=== PATIENT | female | born 1965 | race Caucasian/White ===

== ENCOUNTER → 2016-07-05 | Outpatient (CLI) | payer BC ==
[~2016-07-05] MED LIST: ATV5X PO; CZR25 PO; METF500T5 PO; SIMV-151 PO
[2016-07-05 13:22] LABS: BLOOD UREA NITROGEN 14 mg/dl (7-18); BUN/CREATININE RATIO 16.5 (10-20); CALCIUM 9.4 mg/dl (8.5-10.1); CARBON DIOXIDE 29 mmol/L (21-32); CHLORIDE 104 mmol/L (98-107); CREATININE 0.85 mg/dl (0.60-1.20); GLUCOSE 101 mg/dl (70-99); POTASSIUM 4.2 mmol/L (3.5-5.1); SODIUM 140 mmol/L (136-145)
[2016-07-05 13:25] LABS: CHOLESTEROL 155 mg/dl (0-200); CHOLESTEROL/HDL RATIO 2.3; HDL CHOLESTEROL 66 mg/dl; LDL CHOLESTEROL CALCULATED 67 mg/dl; TRIGLYCERIDES 108 mg/dl (0-150); VERY LOW DENSITY LIPOPROT CALC 22 mg/dl
[2016-07-05 13:29] LABS: ESTIMATED AVERAGE GLUCOSE 131 mg/dl; HA1C FLAG Normal (Normal)
== END | disposition home or self-care (01) ==
LOC: C.LABPVFM 07:58
PROVIDERS: ATTEND Nurse Practitioner
DX: E11.9 Type 2 diabetes mellitus without complications (principal); I10 Essential (primary) hypertension

== ENCOUNTER → 2016-09-23 | Outpatient (CLI) | payer BC ==
--- NOTE | 2016-09-24 12:40 | MAMMOGRAPHY REPORT ---
BILATERAL DIGITAL SCREENING MAMMOGRAM TOMOSYNTHESIS WITH CAD: 09/23/2016 CLINICAL HISTORY: Routine screening. Patient has no complaints. TECHNIQUE: Breast tomosynthesis in addition to standard 2D mammography was performed. Current study was also evaluated with a Computer Aided Detection (CAD) system. COMPARISON: Comparison is made to exams dated: 09/21/2015 mammogram, 09/15/2013 mammogram, and 015 mammogram - [facility]. BREAST COMPOSITION: There are scattered areas of fibroglandular density in both breasts. FINDINGS: The parenchymal pattern is unchanged. No developing mass, architectural distortion or clu ster of suspicious microcalcifications is seen in either breast. IMPRESSION: ACR BI-RADS CATEGORY 2: BENIGN There is no mammographic evidence of malignancy. A 1 year screening mammogram is recommended. The p atient will receive written notification of the results. Approximately 10% of breast cancers are not detected with mammography. A negative mammographic repor t should not delay biopsy if a clinically suggestive mass is present. Lachelle Greer M.D. ay/:09/23/2016 17:07:23 Golf Course Designer: Fabian MOLINA(Trina)(Zohra), [facility] letter sent: Normal 1/2 BI-RADS Code: ACR BI-RADS Category 2: Benign
== END | disposition home or self-care (01) ==
LOC: C.MAMM 10:44
PROVIDERS: ATTEND Nurse Practitioner
DX: Z12.31 Encounter for screening mammogram for malignant neoplasm of breast (principal)

== ENCOUNTER → 2017-01-03 | Outpatient (CLI) | payer BC ==
[2017-01-03 13:13] LABS: BLOOD UREA NITROGEN 11 mg/dl (7-18); CALCIUM 10.2 mg/dl (8.5-10.1); CARBON DIOXIDE 28 mmol/L (21-32); CHLORIDE 106 mmol/L (98-107); CREATININE 0.91 mg/dl (0.60-1.20); GLUCOSE 95 mg/dl (70-99); POTASSIUM 4.7 mmol/L (3.5-5.1); SODIUM 140 mmol/L (136-145)
[2017-01-03 13:17] LABS: ESTIMATED AVERAGE GLUCOSE 137 mg/dl; HA1C FLAG Normal (Normal)
== END | disposition home or self-care (01) ==
LOC: C.LABPVFM 07:51
PROVIDERS: ATTEND Nurse Practitioner
DX: E11.9 Type 2 diabetes mellitus without complications (principal); E78.5 Hyperlipidemia, unspecified; I10 Essential (primary) hypertension

== ENCOUNTER → 2017-01-05 | Outpatient (CLI) | payer BC | END | disposition home or self-care (01) | LOC: C.LABPVFM 10:24 | PROVIDERS: ATTEND Nurse Practitioner | DX: F41.8 Other specified anxiety disorders (principal); R53.83 Other fatigue ==

== ENCOUNTER → 2017-07-07 | Outpatient (CLI) | payer BC ==
[2017-07-07 13:11] LABS: HEMOGLOBIN A1C 6.1 % (4.5-5.6)
[2017-07-07 16:32] LABS: BLOOD UREA NITROGEN 12 mg/dl (7-18); CALCIUM 9.7 mg/dl (8.5-10.1); CARBON DIOXIDE 30 mmol/L (21-32); CHOLESTEROL 139 mg/dl (0-200); CREATININE 0.82 mg/dl (0.60-1.20); GLUCOSE 99 mg/dl (70-99); POTASSIUM 4.1 mmol/L (3.5-5.1); SODIUM 140 mmol/L (136-145)
[2017-07-07 16:35] LABS: LDL CHOLESTEROL CALCULATED 61 mg/dl
== END | disposition home or self-care (01) ==
LOC: C.LABPVFM 09:59
PROVIDERS: ATTEND Nurse Practitioner
DX: E78.5 Hyperlipidemia, unspecified (principal); E11.9 Type 2 diabetes mellitus without complications; I10 Essential (primary) hypertension

== ENCOUNTER → 2017-09-25 | Outpatient (CLI) | payer BC ==
--- NOTE | 2017-09-25 15:04 | MAMMOGRAPHY REPORT ---
BILATERAL DIGITAL SCREENING MAMMOGRAM TOMOSYNTHESIS WITH CAD: 09/25/2017 CLINICAL HISTORY: Routine screening. Patient has no complaints. TECHNIQUE: Breast tomosynthesis in addition to standard 2D mammography was performed. Current study was also evaluated with a Computer Aided Detection (CAD) system. COMPARISON: Comparison is made to exams dated: 09/23/2016 mammogram, 09/21/2015 mammogram, 09/18/2014 m ammogram, and 09/15/2013 mammogram - [facility]. BREAST COMPOSITION: There are scattered areas of fibroglandular density in both breasts. FINDINGS: No suspicious masses, calcifications, or areas of architectural distortion are noted in ei ther breast. There has been no significant interval change compared to prior exams. IMPRESSION: ACR BI-RADS CATEGORY 1: NEGATIVE There is no mammographic evidence of malignancy. A 1 year screening mammogram is recommended. The pa tient will receive written notification of the results. Approximately 10% of breast cancers are not detected with mammography. A negative mammographic report should not delay biopsy if a clinically suggestive mass is present. Elizabeth Levy M.D. ah/:09/25/2017 12:22:29 [employer]: Brii MOLINA,R, M, [facility] letter sent: Normal 1/2 BI-RADS Code: ACR BI-RADS Category 1: Negative
== END | disposition home or self-care (01) ==
LOC: C.MAMM 10:28
PROVIDERS: ATTEND Nurse Practitioner
DX: Z12.31 Encounter for screening mammogram for malignant neoplasm of breast (principal)

== ENCOUNTER → 2018-01-16 | Outpatient (CLI) | payer BC ==
[2018-01-16 10:35] LABS: HEMOGLOBIN A1C 6.2 % (4.5-5.6)
[2018-01-16 10:48] LABS: BLOOD UREA NITROGEN 15 mg/dl (7-18); CARBON DIOXIDE 30 mmol/L (21-32); GLUCOSE 100 mg/dl (70-99); SODIUM 138 mmol/L (136-145)
[2018-01-16 11:09] LABS: CREATININE RANDOM URINE 34.4 mg/dl
== END | disposition home or self-care (01) ==
LOC: C.LAB1850 08:22
PROVIDERS: ATTEND Nurse Practitioner
DX: E11.9 Type 2 diabetes mellitus without complications (principal); I10 Essential (primary) hypertension